=== PATIENT | female | born 1995 | race Caucasian/White ===

== ENCOUNTER 2016-03-22 16:49 | Emergency (ER) | payer OTHER ==
[2016-03-22 16:55] VITALS: BP 101/51; PULSE 124; TEMP 100.5; BMI 20.1
--- NOTE | 2016-03-22 18:28 | PDOC ---
History of Present Illness - General Chief Complaint: Cold Symptoms Stated Complaint: FEVER,SORE THROAT,HEADACHE Time Seen by Provider: 03/22/16 17:51 - History of Present Illness Initial Comments: 03/22/16 18:23 CHIEF COMPLAINT: breast pain, fever HISTORY OF PRESENT ILLNESS: 20 yo F with no PMH presents to fast track with new onset breast pain since this morning accompanied by fever and sore throat since this afternoon. She denies fever, chills, nausea, vomiting, chills, and any URI symptoms. No recent travel or sick contacts. PAST MEDICAL HISTORY: Denies past medical history FAMILY HISTORY: Denies SOCIAL HISTORY: Denies tobacco, alcohol, illicit drug use. SURGICAL HISTORY: Denies ALLERGIES: No known drug allergies REVIEW OF SYSTEMS General/Constitutional: Fever. Denies weakness. HEENT: Sore throat since 11 am. Denies change in vision. Denies ear pain or discharge. Cardiovascular: Denies chest pain or shortness of breath. Respiratory: Denies cough, wheezing, or hemoptysis. Gastrointestinal: Denies nausea, vomiting, diarrhea or constipation. Denies rectal bleeding. Genitourinary: Denies dysuria, frequency, or change in urination. Musculoskeletal: Denies joint or muscle swelling or pain. Denies neck or back pain. Skin and breasts: Breast pain since 11 am. Neurologic: Denies headache, vertigo, loss of consciousness, or loss of sensation. PHYSICAL EXAM General Appearance: Febrile to 100.5F, tachycardic to 124. Well-appearing, appropriately dressed. No apparent distress, no intoxication. HEENT: No erythema or exudate to oropharynx or tonsils. EOMI, PERRLA, normal voice. No conjunctival pallor. No photophobia, scleral icterus. Respiratory/Chest: Lungs CTAB. Cardiovascular: RRR. S1, S2. Lymphatic: No adenopathy, tenderness. Musculoskeletal/Extremities: Normal inspection. FROM of all extremities, normal capillary refill. Pelvis Stable. No CVA tenderness. No tenderness to extremities, pedal edema, swelling, erythema or deformity. Integumentary: Mild erythema, marked tenderness to left breast on palpation. Appropriate color, dry, warm. No cyanosis, erythema, jaundice or rash Neurologic: stock digger II-XII intact. Fully oriented, alert. Appropriate mood/affect. Motor strength 5/5. No appreciable EOM palsy, facial droop or sensory deficit. Past History - Past Medical History Allergies/Adverse Reactions: Allergies Allergy/AdvReac Type Severity Reaction Status Date / Time amoxicillin [Amoxicillin] Allergy Mild Verified 03/22/16 16:50 Home Medications: Ambulatory Orders Ferrous Sulfate 325 mg PO DAILY 12/10/14 Vit/Iron Fumarate/FA [ Tablet] 1 tablet PO DAILY 12/10/14 Acetaminophen [Tylenol .Regular Strength -] 650 mg PO Q3H PRN #0 tablet Benzocaine Ointment [Americaine Ointment -] 1 applic TP PRN PRN #0 tube Benzocaine [Americaine 20% [place] -] 1 spray TP PRN PRN #0 bottle 12/11/14 Ferrous Sulfate [Feosol] 325 mg PO BID #60 ud 12/11/14 Ibuprofen [Motrin -] 200 mg PO Q4H PRN #0 tablet 12/11/14 Vitamins (Sjr) - 1 tab PO DAILY #30 tablet 12/11/14 Witch [place] 50% (Tucks) [Tucks Pads -] 1 pad TP PRN PRN #0 pad 12/11/14 Acetaminophen [Tylenol -] 500 mg PO Q8H PRN #24 tablet 03/22/16 Cephalexin [Keflex] 500 mg PO QID #40 capsule 03/22/16 Asthma: No Cancer: No Cardiac Disorders: No Diabetes: No HTN: No Seizures: No Thyroid Disease: No Other medical history: denies. - Immunization History Td Vaccination: Yes Immunization Up to Date: Yes - Psycho/Social/Smoking Cessation Hx Anxiety: No Suicidal Ideation: No Smoking Status: No Smoking History: Never smoked Years of Tobacco Use: 0 Have you smoked in the past 12 months: No Number of Cigarettes Smoked Daily: 0 Cigars Per Day: 0 Hx Alcohol Use: No Drug/Substance Use Hx: No Hx Substance Use Treatment: No *Physical Exam - Vital Signs Last Vital Signs Temp Pulse Resp BP Pulse Ox 100.5 F H 124 H 19 101/51 99 03/22/16 16:51 03/22/16 16:51 03/22/16 16:51 03/22/16 16:51 03/22/16 16:51 Medical Decision Making - Medical Decision Making 03/22/16 18:58 20 yo F with no PMH presents to ED with left breast pain since this morning and sore throat since this afternoon. Clinical presentation consistent with mastitis. No area of fluctuance or induration appreciate on exam. -650 mg Tylenol 500 mg Keflex qid x 10 days rx sent to pharm. Area of erythema circumscribed with surgical marker and advised patient of signs and symptoms for return to ER.. Advised patient to follow up with [facility] this week. 03/22/16 19:00 *DC/Admit/Observation/Transfer Diagnosis at time of Disposition: Mastitis - Discharge Dispostion Disposition: HOME Condition at time of disposition: Stable Admit: No - Prescriptions Prescriptions: Cephalexin [Keflex] 500 mg PO QID #40 capsule Acetaminophen [Tylenol -] 500 mg PO Q8H PRN #24 tablet PRN Reason: Fever - Referrals Referrals: Virginia Cardenas MD [Primary Care Provider] - Hai Hardy MD [Staff Physician] - - Patient Instructions Printed Discharge Instructions: DI for Mastitis Additional Instructions: Please take medication as prescribed and follow up with your patient registration specialist THIS WEEK. As discussed, if the area of redness spreads past the area marked after 48 hours, or you develop persistent fever, nausea, vomiting, diarrhea, or any new or worsening symptoms, please return to the ER.
[2016-03-22] MEDS ORDERED: ACETAMINOPHEN 325 MG TABLET (FP) PO ONE (18:58)
[2016-03-22] MEDS ORDERED: ACETAMINOPHEN 325 MG TABLET (FP) ONE (19:11)
[2016-03-22 19:34] LABS: URINE APPEARANCE SLCLOUDY; URINE BILIRUBIN NEGATIVE (NEGATIVE); URINE COLOR YELLOW; URINE GLUCOSE (UA) NEGATIVE (NEGATIVE); URINE KETONE 2+ (NEGATIVE); URINE LEUK ESTERASE NEGATIVE (NEGATIVE); URINE NITRITE NEGATIVE (NEGATIVE); URINE PROTEIN NEGATIVE (NEGATIVE); URINE UROBILINOGEN NEGATIVE E.U./dl (0.2-1.0)
[2016-03-22 19:37] LABS: URINE BLOOD 2+ (NEGATIVE)
[2016-03-22 19:40] LABS: URINE MUCUS MANY; URINE RBC 6 /hpf (0-3); URINE WBC 1 /hpf (3-5)
== END 2016-03-22 19:35 | disposition home or self-care (01) ==
LOC: JERFT 16:49
DX: N61.0 Mastitis without abscess (principal)
CPT/HCPCS: 81003; 81015; 84703; 87070; 87086; 87430; 99281-25

== ENCOUNTER 2018-05-31 18:39 | Emergency (ER) | payer OTHER ==
[2018-05-31 18:44] VITALS: BP 109/57; PULSE 84; TEMP 98.2; BMI 20.5
--- NOTE | 2018-05-31 19:26 | PDOC ---
History of Present Illness - General Chief Complaint: Pain, Acute Stated Complaint: PAIN Time Seen by Provider: 05/31/18 19:24 - History of Present Illness Initial Comments: 05/31/18 19:25 23 yo F with no significant pmh who p/w lower suprpapubic pain. Patient reports 1 day of sharp, lower suprpapubic pain worse with sitting down beginning yesterday evening (05/31/18). Patient reports similiar pain in past with UTI x 7 Yeats ago, now with absent dysuria. Also endorses lower back pain. No other complaints. States that she believed pain was 2/2 IUD and had IUD removed today at [address] [place] [address] x 3 years. Patient with continued pain. Patient denies ORELLANA, vision change, palpitations, cough, wheezing, orthopena, PND , leg swelling/pain, N/V, F,C, CP, SOB, urinary complaints, vaginal bleeding/ itching/discharge/burning, dyspareunia, hematuria, BPR, diarrhea, constipation, lightheadedness, weakness, sensory changes. PMHx: as noted above Surgical: Denies ROS: as noted SHx: Denies Etoh, IVDA, tobacco use. Sexualy active with one male partner. Denies h/o STI. A0 Allergies:Amoxicillin Past History - Past Medical History Allergies/Adverse Reactions: Allergies Allergy/AdvReac Type Severity Reaction Status Date / Time amoxicillin [Amoxicillin] Allergy Mild Verified 05/31/18 19:43 Home Medications: Ambulatory Orders Ferrous Sulfate 325 mg PO DAILY 12/10/14 Acetaminophen [Tylenol .Regular Strength -] 650 mg PO Q3H PRN #0 tablet Ibuprofen [Motrin -] 200 mg PO Q4H PRN #0 tablet 12/11/14 Asthma: No Cancer: No Cardiac Disorders: No COPD: No Diabetes: No HTN: No Seizures: No Thyroid Disease: No - Immunization History Td Vaccination: Yes Immunization Up to Date: Yes - Suicide/Smoking/Psychosocial Hx Smoking Status: No Smoking History: Never smoked Years of Tobacco Use: 0 Have you smoked in the past 12 months: No Number of Cigarettes Smoked Daily: 0 Cigars Per Day: 0 Information on smoking cessation initiated: No Hx Alcohol Use: No Drug/Substance Use Hx: No Hx Substance Use Treatment: No Review of Systems - Review of Systems Comments:: 05/31/18 19:25 GENERAL/CONSTITUTIONAL: No fever or chills. No weakness. HEAD, EYES, EARS, NOSE AND THROAT: No change in vision. No ear pain or discharge. No sore throat. CARDIOVASCULAR: No chest pain or shortness of breath RESPIRATORY: No cough, wheezing, or hemoptysis. GASTROINTESTINAL: No nausea, vomiting, diarrhea or constipation. GENITOURINARY: + Lower suprapubic pain. dysuria, frequency, or change in urination. MUSCULOSKELETAL: No joint or muscle swelling or pain. No neck or back pain. SKIN: No rash NEUROLOGIC: No headache, vertigo, loss of consciousness, or change in strength/ sensation. ENDOCRINE: No increased thirst. No abnormal weight change HEMATOLOGIC/LYMPHATIC: No anemia, easy bleeding, or history of blood clots. ALLERGIC/IMMUNOLOGIC: No hives or skin allergy. *Physical Exam - Vital Signs Last Vital Signs Temp Pulse Resp BP Pulse Ox 98.2 F 84 18 109/57 L 100 05/31/18 18:42 05/31/18 18:42 05/31/18 18:42 05/31/18 18:42 05/31/18 18:42 - Physical Exam Comments: 05/31/18 19:25 GENERAL: Awake, alert, and fully oriented, in no acute distress HEAD: No signs of trauma, normocephalic, atraumatic EYES: PERRLA, EOMI, sclera anicteric, conjunctiva clear ENT: Hearing grossly normal, nares patent, oropharynx clear without exudates. Moist mucosa NECK: Normal ROM, supple, no lymphadenopathy, JVD, or masses LUNGS: No distress, speaks full sentences, clear to auscultation bilaterally HEART: Regular rate and rhythm, normal S1 and S2, no murmurs, rubs or gallops, peripheral pulses normal and equal bilaterally. ABDOMEN: + Lower suprapubic ttp. Soft, NDS, normoactive bowel sounds. No guarding, no rebound. No masses. Neg CVA ttp. GENITOURINARY: Nml appearing external genitalia, with absent lesions. Vaginal vault without blood, or discharge. Cervical os closed. Neg CMT on BM. Neg adenexal ttp, or mass palpated. Chaperoned by Dr. Guajardo. EXTREMITIES : Normal inspection, Normal range of motion, no edema. No clubbing or cyanosis. NEUROLOGICAL: Cranial nerves II through XII grossly intact. Normal speech, normal gait, no focal sensorimotor deficits SKIN: Warm, Dry, normal turgor, no rashes or lesions noted ED Treatment Course - LABORATORY CBC & Chemistry Diagram: 05/31/18 20:53 05/31/18 20:53 - ADDITIONAL ORDERS Additional order review: 05/31/18 21:41 Ravinder Faustino Name: JOVANI DESAI DEPARTMENT OF RADIOLOGY Phys: Raymon Manzano RESIDENT : 1995 Age: 23 Sex: F [facility] Acct: [id number] Loc: [address] Exam Date: 05/31/18 Status: [place] [id number] Unit Number: [id number] EXAM#: TYPE/EXAM: RESULT: [id number] US/TRANSVAGINAL ULTRASOUND US Transvaginal ultrasound Clinical information: evaluate for torsion No Doppler evidence of ovarian torsion, sensitivity 70%. A 2.3 cm right ovarian cyst is noted without associated intraluminal debris or hemorrhage. The left ovary appears unremarkable. No discrete uterine abnormality is noted. Endometrial thickness appears unremarkable measuring 0.3 cm. A trace amount of fluid is seen within the cervical canal. There is a small amount of free intraperitoneal fluid within the cul-de-sac. Impression: No Doppler evidence of ovarian torsion. 2.3 cm right ovarian cyst. In comparison to a prior ultrasound exam of 09/15/2016 there is no longer visualization of an IUD within the endometrial cavity - ? interval removal (versus an extrauterine location). Small amount of free fluid within the cul-de-sac. Reported By: Tanner Israel MD 05/31/182132 Raymon Manzano Technologist: Transcribed Date/Time: 05/31/182132 Vessel Engineer: Tanner Israel Printed Date/Time: By: Medical Decision Making - Medical Decision Making 05/31/18 19:36 23 yo F with no significant pmh who p/w 1 day of sharp, stable, lower suprapubic pain worse with sitting down beginning yesterday evening (05/31/18). Vitals wnl, AF, A&Ox3. + suprappubic ttp. Denies N/V, F,C, CP, SOB, urinary complaints, vaginal bleeding/itching/discharge/burning, dyspareunia, hematuria, BPR, diarrhea, constipation, lightheadedness, weakness, sensory changes. Possible cystitis. Will assess for PID, ovarian torsion, cystic rupture, . Ddx also inlcudes GI pathology, appendicitis, colitis. Will consider nephrolithaisis. Ed Course: UA. UCx, G/C 05/31/18 21:42 TVUS: Impression: No Doppler evidence of ovarian torsion. 2.3 cm right ovarian cyst. In comparison to a prior ultrasound exam of 09/15/2016 there is no longer visualization of an IUD within the endometrial cavity - ? interval removal ( versus an extrauterine location). Small amount of free fluid within the cul-de- sac. UA: Neg Motrin 600 mg Patient advised to f/u gsa coordinator Stable for d/c with return precautions 05/31/18 21:50 CMP: Unremarkable *DC/Admit/Observation/Transfer Diagnosis at time of Disposition: Suprapubic abdominal pain - Discharge Dispostion Condition at time of disposition: Stable Decision to Admit order: No - Referrals Referrals: Cris Garcia MD [Staff Physician] - - Patient Instructions Printed Discharge Instructions: DI for Abdominal Pain-Adult Additional Instructions: Please return to the emergency department with any new or worsening symptoms or concerns. Please follow up with your primary care physician or gsa coordinator within 72 hours. - Post Discharge Activity
[2018-05-31] MEDS ORDERED: IBUPROFEN 600 MG TABLET (FP) PO ONE ×2 (20:03→20:07)
[2018-05-31 20:19] LABS: PH,URINE 6.5 (5.0-8.0); URINE APPEARANCE CLEAR; URINE BILIRUBIN NEGATIVE (NEGATIVE); URINE COLOR YELLOW; URINE GLUCOSE (UA) NEGATIVE (NEGATIVE); URINE KETONE NEGATIVE (NEGATIVE); URINE LEUK ESTERASE NEGATIVE (NEGATIVE); URINE NITRITE NEGATIVE (NEGATIVE); URINE PROTEIN NEGATIVE (NEGATIVE)
[2018-05-31 20:21] LABS: HCG,QUALITATIVE URINE Negative
[2018-05-31 21:12] LABS: BASO % 0.4 % (0-2.0); EOS % 0.6 % (0-4.5); HEMATOCRIT 34.5 % (32.4-45.2); HEMOGLOBIN 11.9 GM/dL (10.7-15.3); LYMPH % 21.9 % (8-40); MCH 32.6 pg (25.7-33.7); MCHC 34.5 g/dl (32.0-36.0); MEAN CELL VOLUME 94.3 fl (80-96); MEAN PLT VOLUME 8.8 fl (7.5-11.1); MONO % 6.5 % (3.8-10.2); NEUT % 70.6 % (42.8-82.8); PLATELET COUNT 259 K/MM3 (134-434); RBC 3.66 M/mm3 (3.60-5.2); RDW 13.2 % (11.6-15.6); WHITE BLOOD COUNT 9.6 K/mm3 (4.0-10.0)
[2018-05-31 21:47] LABS: ALBUMIN 4.1 g/dl (3.4-5.0); ALK PHOS 90 U/L (45-117); ANION GAP 7 MMOL/L (8-16); BILIRUBIN,TOTAL 0.2 mg/dL (0.2-1); BLOOD UREA NITROGEN 12 mg/dL (7-18); CALCIUM 9.2 mg/dL (8.5-10.1); CHLORIDE 105 mmol/L (98-107); CO2 26 mmol/L (21-32); CREATININE 0.6 mg/dL (0.55-1.3); GLUCOSE,RANDOM 104 mg/dL (74-106); POTASSIUM 3.8 mmol/L (3.5-5.1); SGOT/AST 16 U/L (15-37); SGPT/ALT 18 U/L (13-61); SODIUM 139 mmol/L (136-145)
--- NOTE | 2018-05-31 22:10 | PDOC ---
Documentation entered by Ruth Goodwin SCRIBE, acting as scribe for Jennifer Guajardo DO. Jennifer Guajardo, DO: This documentation has been prepared by the Christa buckner Daisy, SCRIBE, under my direction and personally reviewed by me in its entirety. I confirm that the documentation accurately reflects all work, treatment, procedures, and medical decision making performed by me. Attending Attestation - Resident Resident Name: Raymon Manzano - ED Attending Attestation I have performed the following: I have examined & evaluated the patient, The case was reviewed & discussed with the resident, I agree w/resident's findings & plan - HPI HPI: 05/31/18 19:46 The patient is a 23 year old female with no PMH who presents with lower suprapubic pain since yesterday night. The patient states the suprapubic pain is exacerbated only when sitting down. Denies any itchiness, vaginal discharge, dysuria, or hematuria. Patient reports her symptoms today are similar to when she had a UTI, which resolved after taking antibiotics. Patient states she has had an IUD in place for the past 3 years, which she had removed today with no relief of her suprapubic pain. Denies any history of STIs or STDs. She is sexually active with 1 partner. Allergies: Amoxicillin - Physicial Exam PE: 05/31/18 19:57 ADULT PHYSICAL EXAM Constitutional: Awake, alert, oriented. No acute distress. Cardiovascular: Regular rate. Regular rhythm. S1, S2 regular. Distal pulses are 2+ and symmetric. Pulmonary/Chest: No evidence of respiratory distress. Clear to auscultation bilaterally No wheezing, rales or rhonchi. Abdominal: Soft and non-distended. (+) Suprapubic tenderness. No rebound, guarding or rigidity. No palpable masses. Pelvic exam: per Dr. Manzano Musculoskeletal: No edema. Full range of motion in all extremities. No calf tenderness. Skin: Skin is warm and dry. Neurological: Alert and oriented to person, place, and time. Cranial nerves II -XII are grossly intact. Psychiatric: Good eye contact. Normal interaction, affect and behavior. - Medical Decision Making 05/31/18 20:01 a/p: 23yo female with lower pelvic pain -denies dysuria, but has lower pelvic pain and lbp -no red flags -had IUD removed today, but still with pain -vaginal exam normal, suprapubic ttp -will send ua, ucg -will monitor and reassess 05/31/18 20:46 ua negative will send labs, pelvic ultrasound for further eval of pelvic pain 05/31/18 21:41 pt with R ovarian cyst, no torsion, scant amount of ff iud removed today 05/31/18 22:10 no acute findings on labs stable for dc to home pain improved with motrin
== END 2018-05-31 21:57 | disposition home or self-care (01) ==
LOC: JER 18:39
DX: R10.30 Lower abdominal pain, unspecified (principal)
CPT/HCPCS: 36415; 76830-TC; 80053; 81003; 84703; 85025; 87086; 87491; 87591; 99282-25

== ENCOUNTER 2019-08-09 10:29 | Emergency (ER) | payer OTHER ==
[2019-08-09 10:45] VITALS: TEMP 98.6; BMI 20.1
[2019-08-09 11:19] LABS: BASO % 0.4 % (0-2.0); EOS % 0.4 % (0-4.5); HEMATOCRIT 32.6 % (32.4-45.2); LYMPH % 22.4 % (8-40); MCH 31.7 pg (25.7-33.7); MCHC 33.9 g/dl (32.0-36.0); MEAN CELL VOLUME 93.4 fl (80-96); MEAN PLT VOLUME 9.2 fl (7.5-11.1); NEUT % 70.8 % (42.8-82.8); PLATELET COUNT 207 K/MM3 (134-434); RBC 3.49 M/mm3 (3.60-5.2); WHITE BLOOD COUNT 6.6 K/mm3 (4.0-10.0)
[2019-08-09 12:03] LABS: ALBUMIN 3.9 g/dl (3.4-5.0); BILIRUBIN,TOTAL 0.4 mg/dL (0.2-1); BLOOD UREA NITROGEN 7.9 mg/dL (7-18); CALCIUM 8.9 mg/dL (8.5-10.1); CREATININE 0.5 mg/dL (0.55-1.3); POTASSIUM 3.6 mmol/L (3.5-5.1); TOT PROT 7.1 g/dl (6.4-8.2)
[2019-08-09 12:35] LABS: EPI CELLS 14 /uL (0-25.1); HYALINE CASTS 1 /uL (0-3.1); PH,URINE 6.5 (5.0-8.0); URINE APPEARANCE CLEAR; URINE BACTERIA 241 /uL (0-1359); URINE BILIRUBIN NEGATIVE (NEGATIVE); URINE COLOR YELLOW; URINE GLUCOSE (UA) NEGATIVE (NEGATIVE); URINE KETONE 4+ (NEGATIVE); URINE LEUK ESTERASE NEGATIVE (NEGATIVE); URINE NITRITE NEGATIVE (NEGATIVE); URINE PROTEIN NEGATIVE (NEGATIVE); URINE RBC 181 /uL (0-23.9); URINE UROBILINOGEN 0.2 mg/dL (0.2-1.0); URINE WBC 11 /uL (0-25.8)
[2019-08-09 12:55] VITALS: BP 96/51; PULSE 72
== END 2019-08-09 13:26 | disposition home or self-care (01) ==
LOC: JER 10:29
DX: O20.8 Other hemorrhage in early pregnancy (principal); Z3A.12 12 weeks gestation of pregnancy
CPT/HCPCS: 36415; 76815; 80053; 81003; 84702; 85025; 86850; 86900; 86901; 87086; 99284-25

== ENCOUNTER 2020-02-10 07:47 | Inpatient (IN) | payer OTHER ==
[2020-02-10] MEDS: ELECTROLYTE-148 SOLN 1,000 ML IV SCH ×2 (09:30→15:00)
[2020-02-10 10:10] LABS: BASO % 0.3 % (0-2.0); EOS % 0.2 % (0-4.5); HEMATOCRIT 35.1 % (32.4-45.2); LYMPH % 16.4 % (8-40); MCH 34.7 pg (25.7-33.7); MCHC 34.2 g/dl (32.0-36.0); MEAN CELL VOLUME 101.6 fl (80-96); MEAN PLT VOLUME 10.9 fl (7.5-11.1); MONO % 4.9 % (3.8-10.2); NEUT % 78.2 % (42.8-82.8); PLATELET COUNT 129 K/MM3 (134-434); RBC 3.46 M/mm3 (3.60-5.2); RDW 13.9 % (11.6-15.6); WHITE BLOOD COUNT 9.2 K/mm3 (4.0-10.0)
[2020-02-10 10:11] VITALS: BMI 20.6
[2020-02-10 10:19] LABS: INR 0.91 (0.83-1.09)
[2020-02-10 10:22] LABS: ACTIVATED PTT 25.6 SECONDS (25.2-36.5)
[2020-02-10 10:30] LABS: POTASSIUM 4.1 mmol/L (3.5-5.1)
[2020-02-10 10:32] LABS: CALCIUM 8.9 mg/dL (8.5-10.1)
[2020-02-10 10:35] LABS: CREATININE 0.4 mg/dL (0.55-1.3)
[2020-02-10] MEDS ORDERED: MIDAZOLAM HCL 2 MG/2 ML SINGLE DOSE VIAL ONE (13:21)
[2020-02-10] MEDS ORDERED: KETOROLAC TROMETHAMINE 30 MG/1 ML VIAL ONE (13:21)
[2020-02-10] MEDS ORDERED: FENTANYL/BUPIVACAINE/NS/PF - PCEA - 50 ML DISP.SYRIN EP ONE (13:53)
[2020-02-10] MEDS ORDERED: PCA PUMP NR ONE ×2 (13:54→19:21)
[2020-02-10] MEDS ORDERED: NALOXONE HCL 0.4 MG/ML VIAL IVPUSH PRN (15:20)
[2020-02-10] MEDS ORDERED: FENTANYL/BUPIVACAINE/NS/PF - PCEA - 50 ML DISP.SYRIN EP SCH (15:30)
[2020-02-10] MEDS ORDERED: OXYTOCIN 20 UNITS in 0.9% NS 20 UNIT/1,000 ML INFUS.BAG IV ONE ×2 (17:07→20:27)
[2020-02-10] MEDS: OXYTOCIN 20 UNITS in 0.9% NS 20 UNIT/1,000 ML INFUS.BAG IV SCH (17:30)
[2020-02-10] MEDS ORDERED: WITCH HAZEL 50% (TUCKS) 40 PAD/JAR PAD TP PRN (17:53)
[2020-02-10] MEDS ORDERED: BISACODYL 10 MG SUPP.RECT RC PRN (17:53)
[2020-02-10] MEDS ORDERED: BENZOCAINE 28 GM HEMORRHOIDAL OINTMENT TP PRN (17:53)
[2020-02-10] MEDS ORDERED: ACETAMINOPHEN 325 MG TABLET (FP) PO PRN (17:53)
[2020-02-10] MEDS ORDERED: IBUPROFEN 600 MG TABLET (FP) PO PRN (17:53)
[2020-02-10] MEDS ORDERED: BENZOCAINE 20% 57 GM BOTTLE TP PRN (17:53)
[2020-02-10] MEDS ORDERED: METHYLERGONOVINE MALEATE 0.2 MG/1 ML AMP IM PRN (17:53)
[2020-02-11 08:23] LABS: BASO % 0.2 % (0-2.0); EOS % 0.3 % (0-4.5); HEMATOCRIT 32.9 % (32.4-45.2); HEMOGLOBIN 11.5 GM/dL (10.7-15.3); MCH 35.1 pg (25.7-33.7); MEAN CELL VOLUME 100.3 fl (80-96); MEAN PLT VOLUME 10.3 fl (7.5-11.1); MONO % 5.1 % (3.8-10.2); NEUT % 80.4 % (42.8-82.8); PLATELET COUNT 127 K/MM3 (134-434); RBC 3.28 M/mm3 (3.60-5.2); RDW 13.9 % (11.6-15.6); WHITE BLOOD COUNT 9.6 K/mm3 (4.0-10.0)
[2020-02-11] MEDS: PRENATAL VITAMINS W/ FOLIC ACID TABLET (FP) PO SCH (09:24)
[2020-02-11] MEDS ORDERED: FLU VACCINE (FLULAVAL) PF 60 MCG/0.5 ML SYRINGE 2020-2021 IM ONE (10:00)
[2020-02-11] MEDS ORDERED: SENNOSIDES/DOCUSATE COMBO (SENNA PLUS) TABLET (UD) PO PRN (22:00)
[2020-02-12] MEDS: OXYTOCIN 20 UNITS in 0.9% NS 20 UNIT/1,000 ML INFUS.BAG IV SCH (00:37)
[2020-02-12 09:17] VITALS: BP 93/56; PULSE 76; TEMP 97.6
[2020-02-12] MEDS: PRENATAL VITAMINS W/ FOLIC ACID TABLET (FP) PO SCH (10:00)
== END 2020-02-12 12:22 | disposition home or self-care (01) | DRG 560 ==
LOC: JDEL 07:47 → JLDR 08:30 → J3W 20:34
PROVIDERS: ADMIT Obstetrics & Gynecology; ATTEND Obstetrics & Gynecology
PROC: 10E0XZZ Delivery of Products of Conception, External Approach (ICD-10-PCS; principal; 2020-02-10)
PROC: 0HQ9XZZ Repair Perineum Skin, External Approach (ICD-10-PCS; 2020-02-10)
PROC: 0W8NXZZ Division of Female Perineum, External Approach (ICD-10-PCS; 2020-02-10)
DX: O70.0 First degree perineal laceration during delivery (principal); Z3A.38 38 weeks gestation of pregnancy; Z37.0 Single live birth
CPT/HCPCS: 36415; 59409; 80048; 85025; 85610; 85730; 86780; 86850; 86900; 86901; C9803; G0008; Q2036; U0003

== ENCOUNTER 2021-06-08 09:37 | Emergency (ER) | payer OTHER ==
[2021-06-08 09:46] VITALS: BP 97/58; PULSE 88; TEMP 98.2; BMI 18.5
[2021-06-08] MEDS ORDERED: NAPROXEN 500 MG TABLET PO ONE (11:31)
[2021-06-08] MEDS ORDERED: NAPROXEN 500 MG TABLET ONE (11:35)
[2021-06-08 11:40] LABS: BASO % 0.4 % (0-2.0); EOS % 0.2 % (0-4.5); HEMATOCRIT 37.3 % (32.4-45.2); HEMOGLOBIN 12.7 GM/dL (10.7-15.3); LYMPH % 22.1 % (8-40); MCH 31.2 pg (25.7-33.7); MCHC 34.1 g/dl (32.0-36.0); MEAN CELL VOLUME 91.3 fl (80-96); MEAN PLT VOLUME 8.3 fl (7.5-11.1); MONO % 7.2 % (3.8-10.2); NEUT % 70.1 % (42.8-82.8); PLATELET COUNT 218 10^3/uL (134-434); RBC 4.08 M/mm3 (3.60-5.2); RDW 13.7 % (11.6-15.6); WHITE BLOOD COUNT 5.2 K/mm3 (4.0-10.0)
[2021-06-08 11:49] LABS: EPI CELLS 5 /uL (0-25.1); HYALINE CASTS 0 /uL (0-3.1); URINE APPEARANCE CLEAR; URINE BACTERIA 88 /uL (0-1359); URINE BILIRUBIN NEGATIVE (NEGATIVE); URINE COLOR ORANGE; URINE GLUCOSE (UA) NEGATIVE (NEGATIVE); URINE KETONE NEGATIVE (NEGATIVE); URINE LEUK ESTERASE NEGATIVE (NEGATIVE); URINE NITRITE NEGATIVE (NEGATIVE); URINE PROTEIN NEGATIVE (NEGATIVE); URINE RBC 3103 /uL (0-23.9); URINE UROBILINOGEN 0.2 mg/dL (0.2-1.0); URINE WBC 6 /uL (0-25.8)
[2021-06-08 11:51] LABS: HCG,QUALITATIVE URINE Negative
[2021-06-08 12:11] LABS: ALBUMIN 4.2 g/dl (3.4-5.0); BLOOD UREA NITROGEN 11.6 mg/dL (7-18)
[2021-06-08 12:14] LABS: CREATININE 0.4 mg/dL (0.55-1.3)
[2021-06-08 12:15] LABS: TOT PROT 7.2 g/dl (6.4-8.2)
[2021-06-08 12:16] LABS: BILIRUBIN,TOTAL 0.3 mg/dL (0.2-1)
== END 2021-06-08 12:40 | disposition home or self-care (01) ==
LOC: JERFT 09:37 → JER 09:37 → JERFT 12:40
DX: N93.9 Abnormal uterine and vaginal bleeding, unspecified (principal)
CPT/HCPCS: 36415; 80053; 81003; 84703; 85025; 87086; 87491; 87591; 99283-25

== ENCOUNTER 2022-07-22 22:03 | Emergency (ER) | payer OTHER ==
[2022-07-22 22:25] VITALS: BP 115/60; PULSE 79; RESP 14; TEMP 98.2; BMI 19.2
== END 2022-07-23 00:09 | disposition home or self-care (01) ==
LOC: JER 22:03
DX: N64.4 Mastodynia (principal); R07.89 Other chest pain
CPT/HCPCS: 71046-TC-FY; 84703; 93005; 93010; 99285-25

== ENCOUNTER 2023-10-28 12:00 | Emergency (ER) | payer OTHER ==
[2023-10-28 12:15] VITALS: BP 109/70; PULSE 80; RESP 19; TEMP 98.3; BMI 20.5
[2023-10-28] MEDS: SODIUM CHLORIDE 0.9% 500 ML INFUS.BAG IV ONE (12:55)
[2023-10-28 13:15] LABS: BASO % 0.2 % (0-2.0); EOS % 1.1 % (0-4.5); LYMPH % 19.7 % (8-40); MCH 32.2 pg (25.7-33.7); MCHC 34.2 g/dl (32.0-36.0); MEAN CELL VOLUME 94.1 fl (80-96); MEAN PLT VOLUME 8.6 fl (7.5-11.1); MONO % 6.3 % (3.8-10.2); NEUT % 72.7 % (42.8-82.8); PLATELET COUNT 286 10^3/uL (134-434); RBC 4.04 M/mm3 (3.60-5.2); RDW 13.8 % (11.6-15.6); WHITE BLOOD COUNT 6.3 K/mm3 (4.0-10.0)
[2023-10-28 13:28] LABS: CHLORIDE 109 mmol/L (98-107); POTASSIUM 4.1 mmol/L (3.5-5.1); SODIUM 138 mmol/L (136-145)
[2023-10-28 13:31] LABS: CALCIUM 8.8 mg/dL (8.5-10.1)
[2023-10-28 13:32] LABS: ALBUMIN 3.8 g/dl (3.4-5.0); ANION GAP 6 mmol/L (4-13); BLOOD UREA NITROGEN 7.6 mg/dL (7-18); CO2 23 mmol/L (21-32); GLUCOSE,RANDOM 127 mg/dL (74-106)
[2023-10-28 13:35] LABS: CREATININE 0.6 mg/dL (0.55-1.3); SGOT/AST 23 U/L (15-37); SGPT/ALT 22 U/L (13-61)
[2023-10-28 13:37] LABS: BILIRUBIN,TOTAL 0.2 mg/dL (0.2-1); TOT PROT 7.5 g/dl (6.4-8.2)
[2023-10-28 13:38] LABS: ALK PHOS 71 U/L (45-117)
[2023-10-28] MEDS ORDERED: ACETAMINOPHEN INJECTION 100 ML ONE (14:07)
[2023-10-28] MEDS ORDERED: KETOROLAC TROMETHAMINE 15 MG/ML VIAL ONE (14:07)
[2023-10-28] MEDS: KETOROLAC TROMETHAMINE 15 MG/ML VIAL IVPUSH ONE (14:10)
[2023-10-28] MEDS: ACETAMINOPHEN 1000 MG/100 ML BAG IVPB ONE (14:12)
[2023-10-28 14:28] LABS: HIV INTERPRETATION NEGATIVE (NEGATIVE)
[2023-10-28] MEDS ORDERED: METOCLOPRAMIDE HCL INJECTION 10 MG/2 ML VIAL ONE (14:28)
[2023-10-28] MEDS: METOCLOPRAMIDE HCL INJECTION 10 MG/2 ML VIAL IVPUSH ONE (14:35)
== END 2023-10-28 16:10 | disposition home or self-care (01) ==
LOC: JER 12:00
PROC: 3E033NZ Introduction of Analgesics, Hypnotics, Sedatives into Peripheral Vein, Percutaneous Approach (ICD-10-PCS; principal; 2023-10-28)
PROC: 3E0333Z Introduction of Anti-inflammatory into Peripheral Vein, Percutaneous Approach (ICD-10-PCS; 2023-10-28)
PROC: 3E033GC Introduction of Other Therapeutic Substance into Peripheral Vein, Percutaneous Approach (ICD-10-PCS; 2023-10-28)
DX: R51.9 Headache, unspecified (principal); R42 Dizziness and giddiness; Z20.822 Contact with and (suspected) exposure to COVID-19
CPT/HCPCS: 0241U-QW; 36415; 80053; 82550; 84484; 84703; 85025; 86803; 87389; 93005; 93010; 99284-25; J0131

== ENCOUNTER 2023-11-01 09:44 | Emergency (ER) | payer OTHER ==
[2023-11-01 09:51] VITALS: BP 115/69; PULSE 80; RESP 18; TEMP 98.5; BMI 20.5
[2023-11-01] MEDS ORDERED: ACETAMINOPHEN INJECTION 100 ML ONE (10:43)
[2023-11-01] MEDS ORDERED: MECLIZINE HCL 25 MG TABLET (FP) ONE (10:43)
[2023-11-01] MEDS ORDERED: METOCLOPRAMIDE HCL INJECTION 10 MG/2 ML VIAL ONE (10:43)
[2023-11-01 10:54] LABS: BASO % 0.4 % (0-2.0); EOS % 0.2 % (0-4.5); HEMATOCRIT 37.7 % (32.4-45.2); HEMOGLOBIN 12.7 GM/dL (10.7-15.3); LYMPH % 12.7 % (8-40); MCHC 33.7 g/dl (32.0-36.0); MEAN CELL VOLUME 95.2 fl (80-96); MEAN PLT VOLUME 8.2 fl (7.5-11.1); MONO % 4.3 % (3.8-10.2); NEUT % 82.4 % (42.8-82.8); PLATELET COUNT 298 10^3/uL (134-434); RBC 3.97 M/mm3 (3.60-5.2); RDW 13.5 % (11.6-15.6); WHITE BLOOD COUNT 7.4 K/mm3 (4.0-10.0)
[2023-11-01 10:59] LABS: HCG,QUALITATIVE URINE Negative
[2023-11-01 11:00] LABS: EPI CELLS 5 /uL (0-25.1); HYALINE CASTS 0 /uL (0-3.1); PH,URINE 6.5 (5.0-8.0); URINE APPEARANCE CLEAR; URINE BACTERIA 9 /uL (0-1359); URINE BILIRUBIN NEGATIVE (NEGATIVE); URINE COLOR YELLOW; URINE GLUCOSE (UA) NEGATIVE (NEGATIVE); URINE KETONE 1+ (NEGATIVE); URINE LEUK ESTERASE NEGATIVE (NEGATIVE); URINE NITRITE NEGATIVE (NEGATIVE); URINE PROTEIN NEGATIVE (NEGATIVE); URINE RBC 333 /uL (0-23.9); URINE UROBILINOGEN 0.2 mg/dL (0.2-1.0); URINE WBC 3 /uL (0-25.8)
[2023-11-01 11:01] LABS: INR 0.97 (0.83-1.09); PROTHROMBIN TIME (PATIENT) 11.2 SEC (9.7-13.0)
[2023-11-01 11:05] LABS: ACTIVATED PTT 31.1 SECONDS (25.2-36.5)
[2023-11-01] MEDS: SODIUM CHLORIDE 1,000 ML IV STA (11:07)
[2023-11-01] MEDS: METOCLOPRAMIDE HCL INJECTION 10 MG/2 ML VIAL IVPUSH ONE (11:08)
[2023-11-01] MEDS: ACETAMINOPHEN 1000 MG/100 ML BAG IVPB ONE (11:08)
[2023-11-01] MEDS: MECLIZINE HCL 25 MG TABLET (FP) PO ONE (11:08)
[2023-11-01 11:12] LABS: POTASSIUM 4.1 mmol/L (3.5-5.1)
[2023-11-01 11:14] LABS: CALCIUM 9.6 mg/dL (8.5-10.1)
[2023-11-01 11:15] LABS: BLOOD UREA NITROGEN 8.4 mg/dL (7-18)
[2023-11-01 11:18] LABS: CREATININE 0.6 mg/dL (0.55-1.3)
[2023-11-01 11:19] LABS: BILIRUBIN,TOTAL 0.4 mg/dL (0.2-1); TOT PROT 7.5 g/dl (6.4-8.2)
== END 2023-11-01 12:47 | disposition home or self-care (01) ==
LOC: JER 09:44
PROC: 3E033NZ Introduction of Analgesics, Hypnotics, Sedatives into Peripheral Vein, Percutaneous Approach (ICD-10-PCS; principal; 2023-11-01)
PROC: 3E033GC Introduction of Other Therapeutic Substance into Peripheral Vein, Percutaneous Approach (ICD-10-PCS; 2023-11-01)
PROC: 3E0337Z Introduction of Electrolytic and Water Balance Substance into Peripheral Vein, Percutaneous Approach (ICD-10-PCS; 2023-11-01)
DX: R51.9 Headache, unspecified (principal); R42 Dizziness and giddiness; Z20.822 Contact with and (suspected) exposure to COVID-19
CPT/HCPCS: 0241U-QW; 36415; 70450-TC; 80053; 81003; 84703; 85025; 85610; 85730; 87086; 99284-25; J0131

== ENCOUNTER 2024-11-01 12:35 | Inpatient (IN) | payer OTHER ==
[2024-11-01] MEDS: DEXTROSE 5%-LACTATED RINGERS 1,000 ML IV SCH (14:30)
[2024-11-01 15:08] LABS: BASOPHILS # 0.04 x10^3/uL (0.01-0.08); EOSINOPHIL % 0.0 % (0.7-5.8); EOSINOPHILS # 0.00 x10^3/uL (0.04-0.36); MCHC 34.0 g/dl (32.2-35.5); MEAN CELL VOLUME 100.5 fl (79.4-94.8)
[2024-11-01 15:10] LABS: ABSOLUTE IMMATURE GRANULOCYTES 0.08 x10^3/uL (0.0-0.031); IMMATURE PLATELET FRACTION # 10.60 x10^3/uL; MEAN PLT VOLUME 12.1 fl (9.4-12.3); MONOCYTE # 0.43 x10^3/uL (0.24-0.86); MONOCYTE % 3.8 % (4.7-12.5); RDW 13.2 % (12.1-16.5)
[2024-11-01 15:16] LABS: INR 0.94 (0.83-1.09); PROTHROMBIN TIME (PATIENT) 10.3 SEC (9.7-13.0)
[2024-11-01 15:20] VITALS: BMI 24.0
[2024-11-01 15:20] LABS: ACTIVATED PTT 25.4 SECONDS (25.2-36.5)
[2024-11-01 15:23] LABS: GLUCOSE,RANDOM 73.0 mg/dL (74-106)
[2024-11-01 15:24] LABS: CO2 18.0 mmol/L (21-32)
[2024-11-01 15:29] LABS: CREATININE 0.53 mg/dL (0.55-1.3)
[2024-11-01] MEDS ORDERED: LIDOCAINE HCL 1% PRESERVATIVE FREE - 30ML VIAL ONE (16:08)
[2024-11-01] MEDS ORDERED: OXYTOCIN 20 UNITS in 0.9% NS 20 UNIT/1,000 ML INFUS.BAG IV ONE (16:08)
[2024-11-01 17:08] LABS: CORD BASE EXCESS -8.2 mmol/L (0-2); CORD HCO3 18.4 mmHg (20-29); CORD PCO2 41.4 mmHg (30-78); CORD pH 7.265 (7.14-7.44)
[2024-11-01] MEDS ORDERED: MISOPROSTOL 200 MCG TABLET ONE (17:09)
[2024-11-01] MEDS: OXYTOCIN 20 UNITS in 0.9% NS 20 UNIT/1,000 ML INFUS.BAG IV SCH (17:10)
[2024-11-01] MEDS: MISOPROSTOL 200 MCG TABLET NR ONE (17:10)
[2024-11-01] MEDS: METHYLERGONOVINE MALEATE 0.2 MG/1 ML AMP IM PRN (17:15)
[2024-11-01] MEDS ORDERED: BENZOCAINE 20% 57 GM BOTTLE TP PRN (17:32)
[2024-11-01] MEDS ORDERED: WITCH HAZEL 50% (TUCKS) 40 PAD/JAR PAD TP PRN (17:32)
[2024-11-01] MEDS ORDERED: BENZOCAINE 28 GM HEMORRHOIDAL OINTMENT TP PRN (17:32)
[2024-11-01] MEDS ORDERED: BISACODYL 10 MG SUPP.RECT RC PRN (17:32)
[2024-11-01] MEDS ORDERED: ACETAMINOPHEN INJECTION 100 ML ONE (18:13)
[2024-11-01] MEDS: ACETAMINOPHEN 1000 MG/100 ML BAG IVPB ONE (18:15)
[2024-11-01] MEDS: IBUPROFEN 600 MG TABLET (FP) PO PRN (22:33)
[2024-11-01] MEDS: SENNOSIDES/DOCUSATE COMBO (SENNA PLUS) TABLET (UD) PO PRN (22:34)
[2024-11-02 06:57] LABS: ABSOLUTE IMMATURE GRANULOCYTES 0.12 x10^3/uL (0.0-0.031); BASOPHILS # 0.04 x10^3/uL (0.01-0.08); EOSINOPHIL % 0.3 % (0.7-5.8); EOSINOPHILS # 0.04 x10^3/uL (0.04-0.36); MCHC 33.7 g/dl (32.2-35.5); MEAN CELL VOLUME 102.4 fl (79.4-94.8); MEAN PLT VOLUME 11.9 fl (9.4-12.3); MONOCYTE # 0.99 x10^3/uL (0.24-0.86); MONOCYTE % 6.9 % (4.7-12.5); RDW 13.1 % (12.1-16.5)
[2024-11-02 09:49] VITALS: RESP 18
[2024-11-02] MEDS: FLU VACC TS2025-26(6MOS UP)/PF 45 MCG/0.5 ML SYRINGE IM ONE (11:20)
[2024-11-02] MEDS: DIPHTH,PERTUSS(ACELL),TET 0.5 ML DISP.SYRIN IM ONE (11:21)
[2024-11-02] MEDS: ACETAMINOPHEN 325 MG TABLET (FP) PO PRN (17:35)
[2024-11-03 06:39] LABS: ABSOLUTE IMMATURE GRANULOCYTES 0.10 x10^3/uL (0.0-0.031); BASOPHILS # 0.03 x10^3/uL (0.01-0.08); EOSINOPHIL % 0.6 % (0.7-5.8); EOSINOPHILS # 0.06 x10^3/uL (0.04-0.36); MCHC 33.5 g/dl (32.2-35.5); MEAN CELL VOLUME 102.6 fl (79.4-94.8); MEAN PLT VOLUME 11.6 fl (9.4-12.3); MONOCYTE # 0.58 x10^3/uL (0.24-0.86); MONOCYTE % 5.9 % (4.7-12.5); RDW 13.4 % (12.1-16.5)
[2024-11-03 08:46] VITALS: BP 119/69; PULSE 96; TEMP 98.2
== END 2024-11-03 10:15 | disposition home or self-care (01) | DRG 560 ==
LOC: JDEL 12:35 → JLDR 14:10 → J3W 19:59
PROVIDERS: ADMIT Obstetrics & Gynecology Obstetrics; ATTEND Obstetrics & Gynecology Obstetrics
PROC: 10E0XZZ Delivery of Products of Conception, External Approach (ICD-10-PCS; principal; 2024-11-01)
DX: O80 Encounter for full-term uncomplicated delivery (principal); Z3A.39 39 weeks gestation of pregnancy; Z37.0 Single live birth
CPT/HCPCS: 36415; 36600; 59409; 80048; 82803; 85025; 85610; 85730; 86780; 86850; 86900; 86901; 90656; 90715; G0008